=== PATIENT | female | born 1990 | race African-American/Black ===

== ENCOUNTER 2016-10-29 07:32 | Emergency (ER) | payer MEDICAID, OTHER ==
[~2016-10-29] VITALS: Ht 172.7 cm; Wt 70.0 kg
[2016-10-29] MEDS ORDERED: KETOROLAC 60MG/2ML VIAL IM ONE (08:15)
[2016-10-29 08:35] VITALS: BP 108/48
== END 2016-10-29 09:09 | disposition home or self-care (01) ==
LOC: ER 07:42
DX: R07.81 Pleurodynia (principal); R56.9 Unspecified convulsions
CPT/HCPCS: 71010; 93005; 99284; J1885